=== PATIENT | female | born 1980 | race African-American/Black ===

== ENCOUNTER 2018-10-28 17:06 | Inpatient (IN) ==
[2018-10-28] MEDS: ONDANSETRON 4 MG/2 ML VIAL IV PRN (19:21)
[2018-10-28] MEDS: MORPHINE 4 MG/1 ML VIAL IV PRN (20:03)
[2018-10-28] MEDS: ACETAMINOPHEN 325 MG TABLET PO PRN (22:14)
[2018-10-28] MEDS: PHENAZOPYRIDINE 95 MG TABLET PO SCH (22:14)
[2018-10-28] MEDS: sulfaSALAzine 500 MG TABLET PO SCH (22:14)
[2018-10-29] MEDS: PIPERACILLIN/TAZOBACTAM 3,375 MG in SODIUM CHLORIDE 0.9% 100 ML IV SCH ×4 (00:33→23:46)
[2018-10-29] MEDS: MORPHINE 4 MG/1 ML VIAL IV PRN ×2 (04:26→20:49)
[2018-10-29 05:15] LABS: Basophils % 0.2 % (0.0-0.8); Eosinophils % 0.2 % (0.00-10.9); Hematocrit 27.4 VOL% (35.7-47.0); Immature Granulocytes % 0.5 %; Immature Granulocytes Absolute 0.09 #; Lymphocytes # 3.2 10*3/uL (1.4-4.0); Mean Corpuscular HGB Conc 29.2 GM/DL (32-36); Mean Corpuscular Hemoglobin 26 PG (27-34); Mean Corpuscular Volume 89.3 FL (87-102); Mean Platelet Volume 9.3 FL (9.6-12.0); Monocytes # 1.4 10*3/uL (0.11-0.8); Monocytes % 8.1 % (1.7-12.7); Neutrophils # 12.1 10*3/uL (1.4-7.4); Platelet Count 394 T/CUMM (130-400); Red Blood Count 3.07 MC/CUMM (3.8-5.5); Red Cell Distribution Width 15.2 % (9.3-17.3); White Blood Count 16.8 T/CUMM (4-12)
[2018-10-29 05:51] LABS: Albumin 2.9 G/DL (3.4-5.0); Osmolality,Calculated 271.8 MOS/KG (273-304); Potassium 3.5 MMOL/L (3.5-5.1); Total Protein 7.7 G/DL (6.4-8.3)
[2018-10-29] MEDS: CETIRIZINE 10 MG TABLET PO SCH (09:53)
[2018-10-29] MEDS: sulfaSALAzine 500 MG TABLET PO SCH ×2 (09:53→20:54)
[2018-10-29] MEDS: PANTOPRAZOLE 40 MG TABLET PO SCH (09:53)
[2018-10-29] MEDS: PHENAZOPYRIDINE 95 MG TABLET PO SCH ×3 (09:53→20:53)
[2018-10-29] MEDS: ACETAMINOPHEN 325 MG TABLET PO PRN (13:55)
[2018-10-30 09:35] LABS: Basophils % 0.2 % (0.0-0.8); Eosinophils % 0.3 % (0.00-10.9); Hematocrit 26.9 VOL% (35.7-47.0); Hemoglobin 7.9 GM/DL (12.0-16.0); Immature Granulocytes % 0.6 %; Immature Granulocytes Absolute 0.08 #; Lymphocytes # 2.7 10*3/uL (1.4-4.0); Lymphocytes % 20.8 % (21.3-54.2); Mean Corpuscular HGB Conc 29.4 GM/DL (32-36); Mean Corpuscular Hemoglobin 27 PG (27-34); Mean Corpuscular Volume 91.2 FL (87-102); Mean Platelet Volume 9.3 FL (9.6-12.0); Monocytes # 1.3 10*3/uL (0.11-0.8); Monocytes % 9.6 % (1.7-12.7); Neutrophils % 68.5 % (38.7-73.9); Platelet Count 383 T/CUMM (130-400); Red Blood Count 2.95 MC/CUMM (3.8-5.5); Red Cell Distribution Width 15.4 % (9.3-17.3); White Blood Count 13.2 T/CUMM (4-12)
[2018-10-30] MEDS: PIPERACILLIN/TAZOBACTAM 3,375 MG in SODIUM CHLORIDE 0.9% 100 ML IV SCH ×2 (09:52→16:15)
[2018-10-30] MEDS: sulfaSALAzine 500 MG TABLET PO SCH ×2 (09:53→21:37)
[2018-10-30] MEDS: PANTOPRAZOLE 40 MG TABLET PO SCH (09:53)
[2018-10-30] MEDS: PHENAZOPYRIDINE 95 MG TABLET PO SCH ×3 (09:53→21:37)
[2018-10-30] MEDS: CETIRIZINE 10 MG TABLET PO SCH (09:53)
[2018-10-30 09:57] LABS: Potassium 3.6 MMOL/L (3.5-5.1)
[2018-10-30] MEDS: MORPHINE 4 MG/1 ML VIAL IV PRN (16:15)
[2018-10-31] MEDS: PIPERACILLIN/TAZOBACTAM 3,375 MG in SODIUM CHLORIDE 0.9% 100 ML IV SCH ×3 (01:41→17:03)
[2018-10-31 05:46] LABS: Basophils % 0.3 % (0.0-0.8); Eosinophils % 0.3 % (0.00-10.9); Hematocrit 27.5 VOL% (35.7-47.0); Immature Granulocytes % 0.6 %; Immature Granulocytes Absolute 0.06 #; Lymphocytes # 2.4 10*3/uL (1.4-4.0); Lymphocytes % 23.3 % (21.3-54.2); Mean Corpuscular HGB Conc 29.1 GM/DL (32-36); Mean Corpuscular Hemoglobin 26 PG (27-34); Mean Corpuscular Volume 90.8 FL (87-102); Mean Platelet Volume 10.1 FL (9.6-12.0); Monocytes # 0.9 10*3/uL (0.11-0.8); Monocytes % 8.5 % (1.7-12.7); Platelet Count 295 T/CUMM (130-400); Red Blood Count 3.03 MC/CUMM (3.8-5.5); Red Cell Distribution Width 15.3 % (9.3-17.3); White Blood Count 10.4 T/CUMM (4-12)
[2018-10-31 06:13] LABS: Calcium 8.8 MG/DL (8.5-10.1); Osmolality,Calculated 272.7 MOS/KG (273-304); Potassium 3.8 MMOL/L (3.5-5.1)
[2018-10-31] MEDS: PANTOPRAZOLE 40 MG TABLET PO SCH (10:02)
[2018-10-31] MEDS: PHENAZOPYRIDINE 95 MG TABLET PO SCH ×3 (10:02→21:35)
[2018-10-31] MEDS: sulfaSALAzine 500 MG TABLET PO SCH ×2 (10:02→21:35)
[2018-10-31] MEDS: CETIRIZINE 10 MG TABLET PO SCH (10:02)
[2018-10-31] MEDS: ACETAMINOPHEN 325 MG TABLET PO PRN (17:03)
[2018-11-01] MEDS: PIPERACILLIN/TAZOBACTAM 3,375 MG in SODIUM CHLORIDE 0.9% 100 ML IV SCH ×4 (00:20→23:53)
[2018-11-01] MEDS: ONDANSETRON 4 MG/2 ML VIAL IV PRN ×2 (04:14→20:15)
[2018-11-01 07:03] LABS: Basophils % 0.2 % (0.0-0.8); Eosinophils % 0.1 % (0.00-10.9); Hemoglobin 8.8 GM/DL (12.0-16.0); Immature Granulocytes % 0.5 %; Immature Granulocytes Absolute 0.07 #; Lymphocytes % 7.9 % (21.3-54.2); Mean Corpuscular HGB Conc 29.3 GM/DL (32-36); Mean Corpuscular Hemoglobin 26 PG (27-34); Mean Corpuscular Volume 90.1 FL (87-102); Mean Platelet Volume 9.3 FL (9.6-12.0); Monocytes # 0.6 10*3/uL (0.11-0.8); Monocytes % 4.6 % (1.7-12.7); Neutrophils # 11.2 10*3/uL (1.4-7.4); Neutrophils % 86.7 % (38.7-73.9); Platelet Count 415 T/CUMM (130-400); Red Blood Count 3.33 MC/CUMM (3.8-5.5); Red Cell Distribution Width 15.5 % (9.3-17.3)
[2018-11-01 07:18] LABS: Calcium 9.5 MG/DL (8.5-10.1); Potassium 3.9 MMOL/L (3.5-5.1)
[2018-11-01] MEDS: PANTOPRAZOLE 40 MG TABLET PO SCH (08:35)
[2018-11-01] MEDS: PHENAZOPYRIDINE 95 MG TABLET PO SCH ×3 (08:35→22:00)
[2018-11-01] MEDS: CETIRIZINE 10 MG TABLET PO SCH (08:35)
[2018-11-01] MEDS: ACETAMINOPHEN 325 MG TABLET PO PRN ×2 (08:35→15:48)
[2018-11-01] MEDS: sulfaSALAzine 500 MG TABLET PO SCH ×2 (08:35→22:00)
[2018-11-01] MEDS: MORPHINE 4 MG/1 ML VIAL IV PRN (12:39)
[2018-11-01] MEDS ORDERED: LACTATED RINGERS 1,000 ML IV ONE (16:27)
[2018-11-01] MEDS: metroNIDAZOLE INJ 500 MG in PREMIX 1 EACH IV SCH (19:17)
[2018-11-01 21:48] LABS: Apearance,Urine CLEAR (Clear); Bacteria,Urine Occasional /HPF (Few); Bilirubin,Urine Negative (Negative); Blood, Urine Negative (Negative); Glucose,Urine (UA) Negative (Negative); Hyaline Casts,Urine 1 /LPF (0-3); Ketones,Urine Negative (Negative); Nitrite,Urine Positive (Negative); Protein,Urine Negative; RBC,Urine 1 /HPF (0-4); Squamous Epithelial Cell,Urine Occasional /HPF (0-10); Urine Color Amber (Yellow); Urine Specific Gravity 1.008 (1.001-1.035); WBC,Urine 1 /HPF (0-6)
[2018-11-02] MEDS: metroNIDAZOLE INJ 500 MG in PREMIX 1 EACH IV SCH ×4 (03:31→21:47)
[2018-11-02 06:18] LABS: Basophils % 0.3 % (0.0-0.8); Eosinophils % 0.1 % (0.00-10.9); Hematocrit 24.7 VOL% (35.7-47.0); Hemoglobin 7.3 GM/DL (12.0-16.0); Immature Granulocytes % 0.5 %; Immature Granulocytes Absolute 0.06 #; Lymphocytes # 1.7 10*3/uL (1.4-4.0); Lymphocytes % 14.5 % (21.3-54.2); Mean Corpuscular HGB Conc 29.6 GM/DL (32-36); Mean Corpuscular Hemoglobin 27 PG (27-34); Mean Corpuscular Volume 89.8 FL (87-102); Mean Platelet Volume 9.3 FL (9.6-12.0); Monocytes # 0.9 10*3/uL (0.11-0.8); Monocytes % 7.5 % (1.7-12.7); Neutrophils # 8.9 10*3/uL (1.4-7.4); Neutrophils % 77.1 % (38.7-73.9); Platelet Count 381 T/CUMM (130-400); Red Blood Count 2.75 MC/CUMM (3.8-5.5); Red Cell Distribution Width 15.9 % (9.3-17.3); White Blood Count 11.5 T/CUMM (4-12)
[2018-11-02 06:40] LABS: Albumin 2.6 G/DL (3.4-5.0); Bilirubin,Total 2.1 MG/DL (0.2-1.0); Calcium 8.9 MG/DL (8.5-10.1); Potassium 3.3 MMOL/L (3.5-5.1); Total Protein 7.4 G/DL (6.4-8.3)
[2018-11-02] MEDS: PHENAZOPYRIDINE 95 MG TABLET PO SCH ×3 (10:30→21:46)
[2018-11-02] MEDS: sulfaSALAzine 500 MG TABLET PO SCH ×2 (10:31→21:46)
[2018-11-02] MEDS: PANTOPRAZOLE 40 MG TABLET PO SCH (10:31)
[2018-11-02] MEDS: CETIRIZINE 10 MG TABLET PO SCH (10:31)
[2018-11-02] MEDS: PIPERACILLIN/TAZOBACTAM 3,375 MG in SODIUM CHLORIDE 0.9% 100 ML IV SCH ×3 (10:40→23:55)
[2018-11-02] MEDS: ACETAMINOPHEN 325 MG TABLET PO PRN (17:35)
[2018-11-02] MEDS: POTASSIUM CHLORIDE 20 MEQ TABLET PO PRN ×2 (21:46→23:54)
[2018-11-03] MEDS: POTASSIUM CHLORIDE 20 MEQ TABLET PO PRN (01:54)
[2018-11-03] MEDS: metroNIDAZOLE INJ 500 MG in PREMIX 1 EACH IV SCH ×2 (03:31→09:00)
[2018-11-03 05:57] LABS: Basophils % 0.3 % (0.0-0.8); Eosinophils # 0.1 10*3/uL (0.0-0.87); Eosinophils % 0.8 % (0.00-10.9); Hematocrit 25.3 VOL% (35.7-47.0); Hemoglobin 7.3 GM/DL (12.0-16.0); Immature Granulocytes % 0.7 %; Immature Granulocytes Absolute 0.06 #; Lymphocytes # 1.7 10*3/uL (1.4-4.0); Mean Corpuscular HGB Conc 28.9 GM/DL (32-36); Mean Corpuscular Hemoglobin 26 PG (27-34); Mean Corpuscular Volume 90.7 FL (87-102); Mean Platelet Volume 9.6 FL (9.6-12.0); Monocytes # 0.9 10*3/uL (0.11-0.8); Monocytes % 10.1 % (1.7-12.7); Neutrophils % 69.1 % (38.7-73.9); Platelet Count 375 T/CUMM (130-400); Red Blood Count 2.79 MC/CUMM (3.8-5.5); Red Cell Distribution Width 15.7 % (9.3-17.3); White Blood Count 8.7 T/CUMM (4-12)
[2018-11-03 06:36] LABS: Albumin 2.7 G/DL (3.4-5.0); Bilirubin,Total 1.1 MG/DL (0.2-1.0); Calcium 8.3 MG/DL (8.5-10.1); Osmolality,Calculated 276.4 MOS/KG (273-304); Potassium 3.6 MMOL/L (3.5-5.1); Total Protein 7.1 G/DL (6.4-8.3)
[2018-11-03 08:39] LABS: Anisocytosis 1+; Hypochromasia 2+; Microcytosis 1+; Platelet Estimate Normal; Polychromasia Slight
[2018-11-03] MEDS: PHENAZOPYRIDINE 95 MG TABLET PO SCH (09:01)
[2018-11-03] MEDS: CETIRIZINE 10 MG TABLET PO SCH (09:01)
[2018-11-03] MEDS: PANTOPRAZOLE 40 MG TABLET PO SCH (09:01)
[2018-11-03] MEDS: sulfaSALAzine 500 MG TABLET PO SCH (09:03)
[2018-11-03] MEDS ORDERED: LEVOFLOXACIN 750 MG TABLET PO SCH (11:30)
[2018-11-03 11:54] VITALS: BP 119/70
[2018-11-03] MEDS: PIPERACILLIN/TAZOBACTAM 3,375 MG in SODIUM CHLORIDE 0.9% 100 ML IV SCH (14:00)
[2018-11-03] MEDS ORDERED: metroNIDAZOLE 500 MG TABLET PO SCH (15:00)
[2018-11-28] MEDS ORDERED: BISACODYL 5 MG TABLET PO ONE (12:00)
[2018-11-28] MEDS ORDERED: POLYETHYLENE GLYCOL POWDER 255 GM BOTTLE PO ONE (18:00)
== END 2018-11-03 13:30 | disposition home or self-care (01) | DRG 392 ==
LOC: EDUNIT# → EDBD → N.ED 17:06 → N.3E 18:06 → SUATTDRO 18:06 → N.3E 20:54
PROVIDERS: ADMIT Hospitalist; ATTEND Internal Medicine

== ENCOUNTER 2020-04-25 11:12 | Inpatient (IN) ==
[2020-04-25] MEDS ORDERED: MORPHINE 4 MG/1 ML VIAL ONE ×2 (11:47→11:48)
[2020-04-25] MEDS ORDERED: ONDANSETRON 4 MG/2 ML VIAL ONE (11:47)
[2020-04-25 11:57] LABS: Basophils % 0.3 % (0.0-0.8); Eosinophils # 0.2 10*3/uL (0.0-0.87); Eosinophils % 1.5 % (0.00-10.9); Hematocrit 32.9 VOL% (35.7-47.0); Hemoglobin 9.8 GM/DL (12.0-16.0); Immature Granulocytes % 0.4 %; Immature Granulocytes Absolute 0.06 #; Lymphocytes # 2.4 10*3/uL (1.4-4.0); Lymphocytes % 17.5 % (21.3-54.2); Mean Corpuscular HGB Conc 29.8 GM/DL (32-36); Mean Platelet Volume 9.3 FL (9.6-12.0); Neutrophils % 71.3 % (38.7-73.9); Platelet Count 470 T/CUMM (130-400); Red Blood Count 4.01 MC/CUMM (3.8-5.5); Red Cell Distribution Width 15.5 % (9.3-17.3); White Blood Count 13.8 T/CUMM (4-12)
[2020-04-25 12:01] LABS: Apearance,Urine CLEAR (Clear); Bacteria,Urine Occasional /HPF (Few); Bilirubin,Urine Negative (Negative); Blood, Urine Small mg/dL (Negative); Glucose,Urine (UA) Negative (Negative); Ketones,Urine Negative (Negative); Mucus,Urine Occasional /LPF (Occasional); Nitrite,Urine Negative (Negative); Protein,Urine 100 MG/DL; RBC,Urine 84 /HPF (0-4); Squamous Epithelial Cell,Urine Occasional /HPF (0-10); Urine Color Amber (Yellow); Urine Specific Gravity 1.021 (1.001-1.035); WBC,Urine 4 /HPF (0-6)
[2020-04-25] MEDS ORDERED: ONDANSETRON 4 MG/2 ML VIAL IV STA (12:13)
[2020-04-25] MEDS ORDERED: MORPHINE 4 MG/1 ML VIAL IV STA ×3 (12:13→13:50)
[2020-04-25] MEDS ORDERED: PIPERACILLIN/TAZOBACTAM 3,375 MG in SODIUM CHLORIDE 0.9% 100 ML IV STA (12:35)
[2020-04-25] MEDS ORDERED: MAGNESIUM SULF RIDER 2 GM in PREMIX 1 EACH IV PRN (13:38)
[2020-04-25] MEDS ORDERED: MAGNESIUM SULF RIDER 4 GM in PREMIX 1 EACH IV PRN (13:38)
[2020-04-25] MEDS ORDERED: HYDROmorphone 2 MG/1 ML VIAL IV PRN (13:38)
[2020-04-25 13:50] LABS: Bilirubin,Total 1.5 MG/DL (0.2-1.0); Calcium 8.6 MG/DL (8.5-10.1); Total Protein 7.5 G/DL (6.4-8.3)
[2020-04-25] MEDS ORDERED: CIPROFLOXACIN INJ 400 MG in PREMIX 1 EACH IV SCH (14:00)
[2020-04-25] MEDS ORDERED: metroNIDAZOLE INJ 500 MG in PREMIX 1 EACH IV SCH (14:00)
[2020-04-25] MEDS ORDERED: LEVOFLOXACIN INJ 500 MG in PREMIX 1 EACH IV SCH ×2 (14:00→14:30)
[2020-04-25] MEDS ORDERED: LEVOFLOXACIN INJ 500 MG in PREMIX 1 EACH IV STA (14:19)
[2020-04-25] MEDS ORDERED: hydrALAZINE 20 MG/1 ML VIAL IV PRN (14:29)
[2020-04-25] MEDS: SODIUM CHLORIDE 0.9% 1,000 ML IV SCH (16:08)
[2020-04-25] MEDS ORDERED: PHENAZOPYRIDINE 95 MG TABLET PO SCH (17:00)
[2020-04-25] MEDS: HYDROmorphone 2 MG/1 ML VIAL IV PRN ×2 (19:31→23:10)
[2020-04-25] MEDS: PIPERACILLIN/TAZOBACTAM 3,375 MG in SODIUM CHLORIDE 0.9% 100 ML IV SCH (21:41)
[2020-04-25] MEDS: DOCUSATE SODIUM 100 MG CAPSULE PO SCH (21:41)
[2020-04-25] MEDS: POLYETHYLENE GLYCOL POWDER 17 GM PACK PO SCH (21:41)
[2020-04-25] MEDS: RIVAROXABAN 10 MG TABLET PO SCH (21:41)
[2020-04-26] MEDS: SODIUM CHLORIDE 0.9% 1,000 ML IV SCH ×2 (01:28→09:37)
[2020-04-26] MEDS: HYDROmorphone 2 MG/1 ML VIAL IV PRN ×3 (01:34→21:00)
[2020-04-26] MEDS: PIPERACILLIN/TAZOBACTAM 3,375 MG in SODIUM CHLORIDE 0.9% 100 ML IV SCH ×3 (05:02→21:00)
[2020-04-26 06:45] LABS: Basophils % 0.2 % (0.0-0.8); Eosinophils # 0.1 10*3/uL (0.0-0.87); Hematocrit 30.5 VOL% (35.7-47.0); Hemoglobin 8.9 GM/DL (12.0-16.0); Immature Granulocytes % 0.4 %; Immature Granulocytes Absolute 0.06 #; Lymphocytes # 2.7 10*3/uL (1.4-4.0); Lymphocytes % 18.9 % (21.3-54.2); Mean Corpuscular HGB Conc 29.2 GM/DL (32-36); Mean Corpuscular Volume 83.8 FL (87-102); Mean Platelet Volume 9.4 FL (9.6-12.0); Monocytes % 9.9 % (1.7-12.7); NRBC # 0.02 10*3/uL; Neutrophils % 69.6 % (38.7-73.9); Platelet Count 469 T/CUMM (130-400); Red Blood Count 3.64 MC/CUMM (3.8-5.5); Red Cell Distribution Width 15.8 % (9.3-17.3); White Blood Count 14.1 T/CUMM (4-12)
[2020-04-26 06:54] LABS: Albumin 2.8 G/DL (3.4-5.0); Bilirubin,Total 1.9 MG/DL (0.2-1.0); Calcium 8.9 MG/DL (8.5-10.1); Osmolality,Calculated 270.8 MOS/KG (273-304); Total Protein 7.9 G/DL (6.4-8.3)
[2020-04-26] MEDS ORDERED: hydroCHLOROthiazide 25 MG TABLET PO SCH (09:00)
[2020-04-26] MEDS ORDERED: NON-FORMULARY MEDICATION (Mesalamine [Lialda] 2.4 GM) PO SCH (09:00)
[2020-04-26] MEDS: NORTRIPTYLINE 25 MG CAPSULE PO SCH (09:38)
[2020-04-26] MEDS: DOCUSATE SODIUM 100 MG CAPSULE PO SCH ×2 (09:38→20:59)
[2020-04-26] MEDS: PANTOPRAZOLE 40 MG VIAL IV SCH (09:38)
[2020-04-26] MEDS: POLYETHYLENE GLYCOL POWDER 17 GM PACK PO SCH ×3 (09:39→20:59)
[2020-04-26] MEDS: RIVAROXABAN 10 MG TABLET PO SCH (20:59)
[2020-04-27] MEDS: SODIUM CHLORIDE 0.9% 1,000 ML IV SCH ×5 (02:05→23:02)
[2020-04-27] MEDS: PIPERACILLIN/TAZOBACTAM 3,375 MG in SODIUM CHLORIDE 0.9% 100 ML IV SCH ×3 (04:30→22:12)
[2020-04-27] MEDS: HYDROmorphone 2 MG/1 ML VIAL IV PRN ×4 (05:01→22:25)
[2020-04-27 06:17] LABS: Basophils % 0.3 % (0.0-0.8); Eosinophils # 0.2 10*3/uL (0.0-0.87); Eosinophils % 2.2 % (0.00-10.9); Hematocrit 27.9 VOL% (35.7-47.0); Immature Granulocytes % 0.5 %; Immature Granulocytes Absolute 0.05 #; Lymphocytes # 2.6 10*3/uL (1.4-4.0); Lymphocytes % 27.5 % (21.3-54.2); Mean Corpuscular HGB Conc 28.7 GM/DL (32-36); Mean Corpuscular Volume 86.1 FL (87-102); Mean Platelet Volume 9.2 FL (9.6-12.0); Monocytes % 8.2 % (1.7-12.7); Neutrophils % 61.3 % (38.7-73.9); Platelet Count 407 T/CUMM (130-400); Red Blood Count 3.24 MC/CUMM (3.8-5.5); White Blood Count 9.4 T/CUMM (4-12)
[2020-04-27 06:42] LABS: Albumin 2.5 G/DL (3.4-5.0); Bilirubin,Total 0.8 MG/DL (0.2-1.0); Calcium 8.5 MG/DL (8.5-10.1); Osmolality,Calculated 274.5 MOS/KG (273-304); Platelet Estimate Normal; Total Protein 7.1 G/DL (6.4-8.3)
[2020-04-27 06:43] LABS: Anisocytosis 2+
[2020-04-27] MEDS: POLYETHYLENE GLYCOL POWDER 17 GM PACK PO SCH ×3 (08:29→22:10)
[2020-04-27] MEDS: PANTOPRAZOLE 40 MG VIAL IV SCH (08:29)
[2020-04-27] MEDS: DOCUSATE SODIUM 100 MG CAPSULE PO SCH ×2 (08:29→22:11)
[2020-04-27] MEDS: NORTRIPTYLINE 25 MG CAPSULE PO SCH (08:29)
[2020-04-27] MEDS: RIVAROXABAN 10 MG TABLET PO SCH (22:11)
[2020-04-28] MEDS: PIPERACILLIN/TAZOBACTAM 3,375 MG in SODIUM CHLORIDE 0.9% 100 ML IV SCH (05:11)
[2020-04-28] MEDS: HYDROmorphone 2 MG/1 ML VIAL IV PRN (05:29)
[2020-04-28 05:39] LABS: Albumin 2.5 G/DL (3.4-5.0); Bilirubin,Total 0.6 MG/DL (0.2-1.0); Calcium 8.7 MG/DL (8.5-10.1); Osmolality,Calculated 270.7 MOS/KG (273-304); Total Protein 7.4 G/DL (6.4-8.3)
[2020-04-28 06:02] LABS: Basophils % 0.5 % (0.0-0.8); Eosinophils # 0.2 10*3/uL (0.0-0.87); Eosinophils % 2.4 % (0.00-10.9); Hematocrit 28.2 VOL% (35.7-47.0); Hemoglobin 8.3 GM/DL (12.0-16.0); Immature Granulocytes % 0.4 %; Immature Granulocytes Absolute 0.03 #; Lymphocytes % 35.6 % (21.3-54.2); Mean Corpuscular HGB Conc 29.4 GM/DL (32-36); Mean Corpuscular Volume 83.9 FL (87-102); Mean Platelet Volume 9.4 FL (9.6-12.0); Monocytes % 10.6 % (1.7-12.7); Neutrophils % 50.5 % (38.7-73.9); Platelet Count 411 T/CUMM (130-400); Red Blood Count 3.36 MC/CUMM (3.8-5.5); White Blood Count 8.3 T/CUMM (4-12)
[2020-04-28 06:08] LABS: Anisocytosis 1+; Hypochromasia 2+
[2020-04-28 06:09] LABS: Platelet Estimate Increased; Polychromasia Slight
[2020-04-28] MEDS ORDERED: CIPROFLOXACIN 500 MG TABLET PO SCH (09:00)
[2020-04-28] MEDS ORDERED: metroNIDAZOLE 500 MG TABLET PO SCH (09:00)
[2020-04-28] MEDS: PANTOPRAZOLE 40 MG VIAL IV SCH (09:27)
[2020-04-28] MEDS: NORTRIPTYLINE 25 MG CAPSULE PO SCH (09:27)
[2020-04-28] MEDS: DOCUSATE SODIUM 100 MG CAPSULE PO SCH (09:28)
[2020-04-28] MEDS: POLYETHYLENE GLYCOL POWDER 17 GM PACK PO SCH (09:28)
[2020-04-28 11:17] VITALS: BP 113/74
== END 2020-04-28 13:10 | disposition home or self-care (01) | DRG 392 ==
LOC: N.ED 11:12 → N.EDINP 13:41 → SUATTDRO 13:41 → N.EDINP 14:55 → N.3E 16:01
PROVIDERS: ADMIT Hospitalist; ATTEND Emergency Medicine

== ENCOUNTER 2020-05-06 10:18 | Inpatient (IN) ==
[2020-05-06] MEDS ORDERED: PROMETHAZINE 25 MG/1 ML VIAL IM PRN (16:44)
[2020-05-06] MEDS ORDERED: ACETAMINOPHEN 325 MG TABLET PO PRN (16:44)
[2020-05-06] MEDS: LACTATED RINGERS 1,000 ML IV SCH (19:33)
[2020-05-06] MEDS: metroNIDAZOLE INJ 500 MG in PREMIX 1 EACH IV SCH (19:33)
[2020-05-06 20:45] LABS: Basophils % 0.4 % (0.0-0.8); Eosinophils # 0.1 10*3/uL (0.0-0.87); Hematocrit 30.2 VOL% (35.7-47.0); Hemoglobin 8.8 GM/DL (12.0-16.0); Immature Granulocytes % 0.2 %; Immature Granulocytes Absolute 0.02 #; Lymphocytes # 2.6 10*3/uL (1.4-4.0); Lymphocytes % 31.1 % (21.3-54.2); Mean Corpuscular HGB Conc 29.1 GM/DL (32-36); Mean Corpuscular Volume 86.8 FL (87-102); Mean Platelet Volume 9.6 FL (9.6-12.0); Monocytes % 11.2 % (1.7-12.7); Neutrophils % 56.1 % (38.7-73.9); Platelet Count 425 T/CUMM (130-400); Red Blood Count 3.48 MC/CUMM (3.8-5.5); Red Cell Distribution Width 17.8 % (9.3-17.3); White Blood Count 8.4 T/CUMM (4-12)
[2020-05-06 20:56] LABS: Calcium 8.6 MG/DL (8.5-10.1); Osmolality,Calculated 273.7 MOS/KG (273-304)
[2020-05-06] MEDS: PIPERACILLIN/TAZOBACTAM 3,375 MG in SODIUM CHLORIDE 0.9% 100 ML IV SCH (21:12)
[2020-05-06] MEDS: HYDROmorphone 2 MG/1 ML VIAL IV PRN (21:24)
[2020-05-06] MEDS: oxyCODONE/ACETAMINOPHEN 5-325 MG TABLET PO PRN (23:27)
[2020-05-07] MEDS: metroNIDAZOLE INJ 500 MG in PREMIX 1 EACH IV SCH ×3 (01:38→17:30)
[2020-05-07] MEDS: oxyCODONE/ACETAMINOPHEN 5-325 MG TABLET PO PRN (04:22)
[2020-05-07] MEDS: PIPERACILLIN/TAZOBACTAM 3,375 MG in SODIUM CHLORIDE 0.9% 100 ML IV SCH ×2 (05:13→18:43)
[2020-05-07 06:28] LABS: Basophils % 0.4 % (0.0-0.8); Eosinophils # 0.1 10*3/uL (0.0-0.87); Eosinophils % 1.6 % (0.00-10.9); Hematocrit 30.4 VOL% (35.7-47.0); Hemoglobin 8.8 GM/DL (12.0-16.0); Immature Granulocytes % 0.1 %; Immature Granulocytes Absolute 0.01 #; Lymphocytes # 2.1 10*3/uL (1.4-4.0); Lymphocytes % 30.3 % (21.3-54.2); Mean Corpuscular HGB Conc 28.9 GM/DL (32-36); Mean Corpuscular Volume 87.9 FL (87-102); Mean Platelet Volume 9.3 FL (9.6-12.0); Monocytes % 9.4 % (1.7-12.7); Neutrophils % 58.2 % (38.7-73.9); Platelet Count 395 T/CUMM (130-400); Red Blood Count 3.46 MC/CUMM (3.8-5.5); Red Cell Distribution Width 17.3 % (9.3-17.3); White Blood Count 6.9 T/CUMM (4-12)
[2020-05-07 06:55] LABS: Calcium 8.6 MG/DL (8.5-10.1); Osmolality,Calculated 274.5 MOS/KG (273-304)
[2020-05-07] MEDS: PANTOPRAZOLE 40 MG TABLET PO SCH (09:05)
[2020-05-07] MEDS ORDERED: SCOPOLAMINE 1.5 MG PATCH TRANSDERM ONE ×2 (09:41→11:21)
[2020-05-07] MEDS ORDERED: MIDAZOLAM 2 MG/2 ML VIAL ONE ×2 (10:32→15:53)
[2020-05-07] MEDS ORDERED: DEXAMETHASONE 4 MG/1 ML VIAL ONE ×2 (10:32→15:54)
[2020-05-07] MEDS ORDERED: ROPIVACAINE 0.5% 30 ML VIAL ONE (10:32)
[2020-05-07] MEDS ORDERED: LIDOCAINE 1% 5 ML VIAL ONE (10:32)
[2020-05-07] MEDS ORDERED: ONDANSETRON 4 MG/2 ML VIAL ONE ×2 (10:33→15:54)
[2020-05-07] MEDS ORDERED: ONDANSETRON 4 MG/2 ML VIAL IV ONE (11:04)
[2020-05-07] MEDS ORDERED: MIDAZOLAM 2 MG/2 ML VIAL IV ONE (11:04)
[2020-05-07] MEDS ORDERED: SODIUM CHLORIDE 0.9% 1,000 ML IV PRN ×2 (12:50→12:54)
[2020-05-07 13:39] LABS: Hemoglobin 8.4 GM/DL (12.0-16.0)
[2020-05-07] MEDS: LACTATED RINGERS 1,000 ML IV SCH (14:00)
[2020-05-07] MEDS ORDERED: TISSUE ADHESIVE 1 EACH APPLICATOR TOP ONE (14:53)
[2020-05-07] MEDS ORDERED: propofoL 200 MG/20 ML VIAL IV ONE (15:53)
[2020-05-07] MEDS ORDERED: LIDOCAINE 2% 5 ML VIAL ONE (15:53)
[2020-05-07] MEDS ORDERED: fentaNYL 100 MCG/2 ML VIAL ONE (15:53)
[2020-05-07] MEDS ORDERED: GLYCOPYRROLATE 0.4 MG/2 ML VIAL ONE (15:54)
[2020-05-07] MEDS ORDERED: LACTATED RINGERS 1,000 ML IV ONE (15:54)
[2020-05-07] MEDS ORDERED: ROCURONIUM 100 MG/10 ML VIAL IV ONE (15:54)
[2020-05-07] MEDS ORDERED: ACETAMINOPHEN 1,000 MG/100 ML VIAL IV ONE (15:54)
[2020-05-07] MEDS ORDERED: SODIUM CHLORIDE 0.9% 1,000 ML IV ONE (15:54)
[2020-05-07] MEDS ORDERED: METOPROLOL TARTRATE 5 MG/5 ML VIAL IV ONE (15:54)
[2020-05-07] MEDS ORDERED: NEOSTIGMINE 10 MG/10 ML VIAL ONE (15:54)
[2020-05-07] MEDS ORDERED: PHENYLEPHRINE 1 MG/10 ML SYRINGE IV ONE (15:54)
[2020-05-07] MEDS ORDERED: SEVOFLURANE 1 UNIT/15 MINUTE INH ONE (16:05)
[2020-05-07] MEDS ORDERED: NORTRIPTYLINE 25 MG CAPSULE PO PRN (17:06)
[2020-05-07 17:26] LABS: Basophils % 0.1 % (0.0-0.8); Hematocrit 32.1 VOL% (35.7-47.0); Hemoglobin 9.6 GM/DL (12.0-16.0); Immature Granulocytes % 0.4 %; Immature Granulocytes Absolute 0.05 #; Lymphocytes # 0.9 10*3/uL (1.4-4.0); Lymphocytes % 6.8 % (21.3-54.2); Mean Corpuscular HGB Conc 29.9 GM/DL (32-36); Mean Corpuscular Volume 87.2 FL (87-102); Mean Platelet Volume 9.3 FL (9.6-12.0); Monocytes % 1.6 % (1.7-12.7); Neutrophils % 91.1 % (38.7-73.9); Platelet Count 430 T/CUMM (130-400); Red Blood Count 3.68 MC/CUMM (3.8-5.5); Red Cell Distribution Width 17.5 % (9.3-17.3); White Blood Count 13.2 T/CUMM (4-12)
[2020-05-07 17:48] LABS: Calcium 8.5 MG/DL (8.5-10.1); Osmolality,Calculated 277.5 MOS/KG (273-304)
[2020-05-07 18:05] LABS: Anisocytosis 2+; Lymphocytes 4 % (20-55); Macrocytosis 1+; Microcytosis 2+; Platelet Estimate Increased; Polychromasia Slight; Segmented Neutrophils 96 % (50-85); Total Cells Counted 100
[2020-05-07] MEDS: HYDROmorphone 2 MG/1 ML VIAL IV PRN ×2 (18:40→22:58)
[2020-05-08] MEDS: LACTATED RINGERS 1,000 ML IV SCH ×3 (01:29→14:00)
[2020-05-08] MEDS: metroNIDAZOLE INJ 500 MG in PREMIX 1 EACH IV SCH ×3 (01:32→18:03)
[2020-05-08] MEDS: HYDROmorphone 2 MG/1 ML VIAL IV PRN ×4 (03:17→19:43)
[2020-05-08] MEDS: PIPERACILLIN/TAZOBACTAM 3,375 MG in SODIUM CHLORIDE 0.9% 100 ML IV SCH ×3 (03:23→19:19)
[2020-05-08 06:59] LABS: Basophils % 0.2 % (0.0-0.8); Hematocrit 29.7 VOL% (35.7-47.0); Hemoglobin 8.8 GM/DL (12.0-16.0); Immature Granulocytes % 0.5 %; Immature Granulocytes Absolute 0.06 #; Lymphocytes # 2.2 10*3/uL (1.4-4.0); Mean Corpuscular HGB Conc 29.6 GM/DL (32-36); Mean Corpuscular Volume 88.4 FL (87-102); Mean Platelet Volume 9.9 FL (9.6-12.0); Monocytes % 6.6 % (1.7-12.7); Neutrophils % 75.7 % (38.7-73.9); Platelet Count 439 T/CUMM (130-400); Red Blood Count 3.36 MC/CUMM (3.8-5.5); Red Cell Distribution Width 17.3 % (9.3-17.3); White Blood Count 12.8 T/CUMM (4-12)
[2020-05-08 07:21] LABS: Calcium 8.4 MG/DL (8.5-10.1); Osmolality,Calculated 274.5 MOS/KG (273-304)
[2020-05-08] MEDS: PANTOPRAZOLE 40 MG TABLET PO SCH (08:19)
[2020-05-08] MEDS: CETIRIZINE 10 MG TABLET PO SCH (08:19)
[2020-05-08] MEDS: MESALAMINE 1.5 GM PO SCH (09:20)
[2020-05-08] MEDS: ENOXAPARIN 40 MG/0.4 ML SYRINGE SUBCUT SCH (09:20)
[2020-05-08] MEDS: oxyCODONE/ACETAMINOPHEN 5-325 MG TABLET PO PRN ×2 (13:06→23:12)
[2020-05-08] MEDS: KETOROLAC 15 MG/1 ML VIAL IV PRN (23:13)
[2020-05-09] MEDS: metroNIDAZOLE INJ 500 MG in PREMIX 1 EACH IV SCH ×3 (00:15→17:10)
[2020-05-09] MEDS: HYDROmorphone 2 MG/1 ML VIAL IV PRN ×5 (02:00→20:43)
[2020-05-09] MEDS: PIPERACILLIN/TAZOBACTAM 3,375 MG in SODIUM CHLORIDE 0.9% 100 ML IV SCH ×3 (02:08→18:21)
[2020-05-09] MEDS: ONDANSETRON 4 MG/2 ML VIAL IV PRN ×2 (04:15→20:42)
[2020-05-09] MEDS: KETOROLAC 15 MG/1 ML VIAL IV PRN (05:16)
[2020-05-09 05:50] LABS: Basophils % 0.2 % (0.0-0.8); Eosinophils # 0.2 10*3/uL (0.0-0.87); Eosinophils % 1.1 % (0.00-10.9); Hematocrit 32.3 VOL% (35.7-47.0); Hemoglobin 9.6 GM/DL (12.0-16.0); Immature Granulocytes % 0.3 %; Immature Granulocytes Absolute 0.05 #; Lymphocytes # 2.1 10*3/uL (1.4-4.0); Lymphocytes % 13.9 % (21.3-54.2); Mean Corpuscular HGB Conc 29.7 GM/DL (32-36); Mean Corpuscular Volume 87.5 FL (87-102); Mean Platelet Volume 9.7 FL (9.6-12.0); Monocytes % 6.2 % (1.7-12.7); Neutrophils % 78.3 % (38.7-73.9); Platelet Count 466 T/CUMM (130-400); Red Blood Count 3.69 MC/CUMM (3.8-5.5); Red Cell Distribution Width 17.2 % (9.3-17.3); White Blood Count 15.2 T/CUMM (4-12)
[2020-05-09] MEDS: LACTATED RINGERS 1,000 ML IV SCH ×3 (06:12→14:00)
[2020-05-09] MEDS: CETIRIZINE 10 MG TABLET PO SCH (09:00)
[2020-05-09] MEDS: ENOXAPARIN 40 MG/0.4 ML SYRINGE SUBCUT SCH (09:00)
[2020-05-09] MEDS: PANTOPRAZOLE 40 MG TABLET PO SCH (09:00)
[2020-05-09] MEDS: MESALAMINE 1.5 GM PO SCH (09:01)
[2020-05-09] MEDS: KETOROLAC 15 MG/1 ML VIAL IV SCH ×3 (12:15→23:50)
[2020-05-10] MEDS: LACTATED RINGERS 1,000 ML IV SCH ×2 (00:02→06:21)
[2020-05-10] MEDS: metroNIDAZOLE INJ 500 MG in PREMIX 1 EACH IV SCH ×2 (01:27→08:41)
[2020-05-10] MEDS: HYDROmorphone 2 MG/1 ML VIAL IV PRN ×4 (02:47→20:45)
[2020-05-10] MEDS: PIPERACILLIN/TAZOBACTAM 3,375 MG in SODIUM CHLORIDE 0.9% 100 ML IV SCH (02:51)
[2020-05-10 05:23] LABS: Basophils % 0.2 % (0.0-0.8); Eosinophils # 0.3 10*3/uL (0.0-0.87); Eosinophils % 2.3 % (0.00-10.9); Hematocrit 28.5 VOL% (35.7-47.0); Hemoglobin 8.3 GM/DL (12.0-16.0); Immature Granulocytes % 0.4 %; Immature Granulocytes Absolute 0.05 #; Lymphocytes # 2.1 10*3/uL (1.4-4.0); Lymphocytes % 16.7 % (21.3-54.2); Mean Corpuscular HGB Conc 29.1 GM/DL (32-36); Mean Corpuscular Volume 88.5 FL (87-102); Mean Platelet Volume 9.4 FL (9.6-12.0); Monocytes % 6.9 % (1.7-12.7); Neutrophils % 73.5 % (38.7-73.9); Platelet Count 397 T/CUMM (130-400); Red Blood Count 3.22 MC/CUMM (3.8-5.5); Red Cell Distribution Width 17.2 % (9.3-17.3); White Blood Count 12.8 T/CUMM (4-12)
[2020-05-10] MEDS: KETOROLAC 15 MG/1 ML VIAL IV SCH ×4 (05:29→23:30)
[2020-05-10 05:49] LABS: Calcium 8.5 MG/DL (8.5-10.1); Osmolality,Calculated 281.3 MOS/KG (273-304)
[2020-05-10] MEDS: ENOXAPARIN 40 MG/0.4 ML SYRINGE SUBCUT SCH (08:41)
[2020-05-10] MEDS: CETIRIZINE 10 MG TABLET PO SCH (08:41)
[2020-05-10] MEDS: PANTOPRAZOLE 40 MG TABLET PO SCH (08:41)
[2020-05-10] MEDS: MESALAMINE 1.5 GM PO SCH (08:42)
[2020-05-10] MEDS ORDERED: CIPROFLOXACIN 500 MG TABLET PO ONE (10:00)
[2020-05-10] MEDS: metroNIDAZOLE 500 MG TABLET PO SCH ×2 (15:46→20:45)
[2020-05-10] MEDS: CIPROFLOXACIN 500 MG TABLET PO SCH (20:45)
[2020-05-11] MEDS: HYDROmorphone 2 MG/1 ML VIAL IV PRN ×2 (03:09→14:25)
[2020-05-11] MEDS: KETOROLAC 15 MG/1 ML VIAL IV SCH ×4 (05:09→22:52)
[2020-05-11 06:59] LABS: Basophils % 0.2 % (0.0-0.8); Eosinophils # 0.5 10*3/uL (0.0-0.87); Eosinophils % 4.8 % (0.00-10.9); Hematocrit 24.3 VOL% (35.7-47.0); Immature Granulocytes % 0.3 %; Immature Granulocytes Absolute 0.03 #; Lymphocytes # 2.2 10*3/uL (1.4-4.0); Lymphocytes % 21.1 % (21.3-54.2); Mean Corpuscular HGB Conc 28.8 GM/DL (32-36); Mean Corpuscular Volume 87.1 FL (87-102); Mean Platelet Volume 9.9 FL (9.6-12.0); Monocytes % 8.3 % (1.7-12.7); Neutrophils % 65.3 % (38.7-73.9); Platelet Count 382 T/CUMM (130-400); Red Blood Count 2.79 MC/CUMM (3.8-5.5); White Blood Count 10.3 T/CUMM (4-12)
[2020-05-11 07:22] LABS: Hypochromasia 2+; Microcytosis 1+; Platelet Estimate Adequate
[2020-05-11] MEDS: CETIRIZINE 10 MG TABLET PO SCH (08:35)
[2020-05-11] MEDS: ENOXAPARIN 40 MG/0.4 ML SYRINGE SUBCUT SCH (08:35)
[2020-05-11] MEDS: metroNIDAZOLE 500 MG TABLET PO SCH ×3 (08:35→21:44)
[2020-05-11] MEDS: PANTOPRAZOLE 40 MG TABLET PO SCH (08:35)
[2020-05-11] MEDS: CIPROFLOXACIN 500 MG TABLET PO SCH ×2 (08:35→21:44)
[2020-05-11] MEDS: MESALAMINE 1.5 GM PO SCH (08:36)
[2020-05-12] MEDS: KETOROLAC 15 MG/1 ML VIAL IV SCH (04:38)
[2020-05-12 06:08] LABS: Basophils % 0.3 % (0.0-0.8); Eosinophils # 0.4 10*3/uL (0.0-0.87); Eosinophils % 4.5 % (0.00-10.9); Hematocrit 24.4 VOL% (35.7-47.0); Immature Granulocytes % 0.5 %; Immature Granulocytes Absolute 0.04 #; Lymphocytes # 1.6 10*3/uL (1.4-4.0); Lymphocytes % 18.6 % (21.3-54.2); Mean Corpuscular HGB Conc 28.7 GM/DL (32-36); Mean Corpuscular Volume 87.8 FL (87-102); Mean Platelet Volume 9.1 FL (9.6-12.0); Monocytes % 8.7 % (1.7-12.7); Neutrophils % 67.4 % (38.7-73.9); Platelet Count 363 T/CUMM (130-400); Red Blood Count 2.78 MC/CUMM (3.8-5.5); White Blood Count 8.6 T/CUMM (4-12)
[2020-05-12 06:30] LABS: Hypochromasia 1+; Microcytosis Slight; Platelet Estimate Adequate
[2020-05-12] MEDS: metroNIDAZOLE 500 MG TABLET PO SCH (09:07)
[2020-05-12] MEDS: CIPROFLOXACIN 500 MG TABLET PO SCH (09:07)
[2020-05-12] MEDS: PANTOPRAZOLE 40 MG TABLET PO SCH (09:08)
[2020-05-12] MEDS: CETIRIZINE 10 MG TABLET PO SCH (09:08)
[2020-05-12] MEDS: ENOXAPARIN 40 MG/0.4 ML SYRINGE SUBCUT SCH (09:11)
[2020-05-12] MEDS: MESALAMINE 1.5 GM PO SCH (11:37)
[2020-05-12 11:41] VITALS: BP 131/82
== END 2020-05-12 13:05 | disposition home health service (06) | DRG 329 ==
LOC: N.2E 16:02 → N.3E 05-07 16:02
PROVIDERS: ADMIT Surgery; ATTEND Surgery

== ENCOUNTER 2020-12-28 05:58 | Inpatient (IN) ==
[2020-12-20 12:42] LABS: Basophils # 0.1 10*3/uL (0.0-0.2); Basophils % 0.7 % (0.0-0.8); Eosinophils # 0.1 10*3/uL (0.0-0.87); Eosinophils % 0.6 % (0.00-10.9); Hematocrit 35.8 VOL% (35.7-47.0); Hemoglobin 10.6 GM/DL (12.0-16.0); Immature Granulocytes % 0.3 %; Immature Granulocytes Absolute 0.03 #; Lymphocytes # 3.5 10*3/uL (1.4-4.0); Lymphocytes % 40.3 % (21.3-54.2); Mean Corpuscular HGB Conc 29.6 GM/DL (32-36); Mean Corpuscular Volume 76.5 FL (87-102); Mean Platelet Volume 10.3 FL (9.6-12.0); Monocytes % 7.1 % (1.7-12.7); Platelet Count 355 T/CUMM (130-400); Red Blood Count 4.68 MC/CUMM (3.8-5.5); Red Cell Distribution Width 16.7 % (9.3-17.3); White Blood Count 8.8 T/CUMM (4-12)
[2020-12-20 13:01] LABS: Calcium 9.2 MG/DL (8.5-10.1); Osmolality,Calculated 271.8 MOS/KG (273-304); Potassium 4.3 MMOL/L (3.5-5.1)
[2020-12-28] MEDS ORDERED: DEXAMETHASONE 4 MG/1 ML VIAL ONE ×2 (06:27→12:56)
[2020-12-28] MEDS ORDERED: MIDAZOLAM 2 MG/2 ML VIAL ONE (06:27)
[2020-12-28] MEDS ORDERED: fentaNYL 100 MCG/2 ML VIAL ONE ×5 (06:27→14:01)
[2020-12-28] MEDS ORDERED: ROPIVACAINE 0.5% 30 ML VIAL ONE (06:28)
[2020-12-28] MEDS ORDERED: ALVIMOPAN 12 MG CAPSULE PO ONE (06:30)
[2020-12-28] MEDS ORDERED: ERTAPENEM 1,000 MG in SODIUM CHLORIDE 0.9% 100 ML IV ONE (06:30)
[2020-12-28] MEDS ORDERED: SCOPOLAMINE 1.5 MG PATCH TRANSDERM ONE (06:41)
[2020-12-28] MEDS ORDERED: SCOPOLAMINE 1.5 MG PATCH TRANSDERM STA (06:42)
[2020-12-28] MEDS ORDERED: INDOCYANINE GREEN 25 MG VIAL IV ONE (06:42)
[2020-12-28] MEDS ORDERED: LACTATED RINGERS 1,000 ML IV SCH (06:45)
[2020-12-28] MEDS ORDERED: SEVOFLURANE 1 UNIT/15 MINUTE INH ONE ×19 (08:14→13:01)
[2020-12-28] MEDS ORDERED: SUCCINYLCHOLINE 200 MG/10 ML VIAL ONE (08:14)
[2020-12-28] MEDS ORDERED: propofoL 200 MG/20 ML VIAL IV ONE (08:14)
[2020-12-28] MEDS ORDERED: LIDOCAINE 2% 5 ML VIAL ONE (08:14)
[2020-12-28] MEDS ORDERED: ROCURONIUM 50 MG/5 ML VIAL IV ONE ×2 (08:14→10:24)
[2020-12-28] MEDS ORDERED: ACETAMINOPHEN 1,000 MG/100 ML VIAL IV ONE (09:34)
[2020-12-28] MEDS ORDERED: ONDANSETRON 4 MG/2 ML VIAL ONE ×2 (12:56→14:34)
[2020-12-28] MEDS ORDERED: SUGAMMADEX 200 MG/2 ML VIAL IV ONE (13:08)
[2020-12-28] MEDS ORDERED: LACTATED RINGERS 2,000 ML IV ONE (13:42)
[2020-12-28] MEDS ORDERED: TISSUE ADHESIVE 1 EACH APPLICATOR TOP ONE (14:03)
[2020-12-28] MEDS ORDERED: HYDROmorphone 2 MG/1 ML VIAL ONE (14:34)
[2020-12-28] MEDS: HYDROmorphone 2 MG/1 ML VIAL IV PRN ×4 (14:35→14:50)
[2020-12-28] MEDS ORDERED: ONDANSETRON 4 MG/2 ML VIAL IV PRN (14:36)
[2020-12-28] MEDS ORDERED: LABETALOL 20 MG/4 ML SYRINGE IV ONE ×2 (15:37→15:49)
[2020-12-28] MEDS ORDERED: HYDROmorphone 2 MG/1 ML VIAL IV PRN (16:53)
[2020-12-28] MEDS ORDERED: [UNRECOGNIZED DRUG - OTHER] PO SCH (16:53)
[2020-12-28] MEDS ORDERED: CETIRIZINE 10 MG TABLET PO PRN (16:53)
[2020-12-28] MEDS: LACTATED RINGERS 1,000 ML IV SCH (17:31)
[2020-12-28] MEDS: KETOROLAC 30 MG/1 ML VIAL IV SCH ×3 (17:31→21:56)
[2020-12-28] MEDS ORDERED: NALOXONE 0.4 MG/ML VIAL IV PRN (17:31)
[2020-12-28 17:46] LABS: Calcium 8.7 MG/DL (8.5-10.1); Osmolality,Calculated 272.1 MOS/KG (273-304); Potassium 4.3 MMOL/L (3.5-5.1)
[2020-12-28 17:48] LABS: Basophils % 0.1 % (0.0-0.8); Hemoglobin 11.6 GM/DL (12.0-16.0); Immature Granulocytes % 0.7 %; Immature Granulocytes Absolute 0.17 #; Lymphocytes # 0.7 10*3/uL (1.4-4.0); Lymphocytes % 2.9 % (21.3-54.2); Mean Corpuscular HGB Conc 28.3 GM/DL (32-36); Mean Corpuscular Volume 79.3 FL (87-102); Mean Platelet Volume 10.6 FL (9.6-12.0); Monocytes % 2.1 % (1.7-12.7); Neutrophils % 94.2 % (38.7-73.9); Platelet Count 372 T/CUMM (130-400); Red Blood Count 5.17 MC/CUMM (3.8-5.5); Red Cell Distribution Width 17.2 % (9.3-17.3); White Blood Count 24.2 T/CUMM (4-12)
[2020-12-28] MEDS: HYDROmorphone PCA 30 MG/30 ML SYRINGE IV SCH (18:15)
[2020-12-28 19:32] LABS: Band Neutrophils 1 % (0-10); Lymphocytes 3 % (20-55); Platelet Estimate Normal; Segmented Neutrophils 96 % (50-85); Total Cells Counted 100
[2020-12-28 19:33] LABS: Polychromasia Few
[2020-12-28] MEDS: ALVIMOPAN 12 MG CAPSULE PO SCH (20:28)
[2020-12-28] MEDS: PANTOPRAZOLE 40 MG TABLET PO SCH (20:28)
[2020-12-29] MEDS: LACTATED RINGERS 1,000 ML IV SCH (02:37)
[2020-12-29] MEDS: KETOROLAC 30 MG/1 ML VIAL IV SCH ×4 (05:17→22:12)
[2020-12-29 06:07] LABS: Basophils % 0.2 % (0.0-0.8); Hematocrit 33.9 VOL% (35.7-47.0); Hemoglobin 10.1 GM/DL (12.0-16.0); Immature Granulocytes % 0.4 %; Immature Granulocytes Absolute 0.07 #; Lymphocytes # 2.3 10*3/uL (1.4-4.0); Lymphocytes % 13.3 % (21.3-54.2); Mean Corpuscular HGB Conc 29.8 GM/DL (32-36); Mean Corpuscular Volume 76.4 FL (87-102); Mean Platelet Volume 9.9 FL (9.6-12.0); Monocytes % 8.3 % (1.7-12.7); Neutrophils % 77.8 % (38.7-73.9); Platelet Count 322 T/CUMM (130-400); Red Blood Count 4.44 MC/CUMM (3.8-5.5); White Blood Count 17.5 T/CUMM (4-12)
[2020-12-29] MEDS ORDERED: LACTATED RINGERS 1,000 ML IV SCH (06:25)
[2020-12-29 06:39] LABS: Calcium 8.4 MG/DL (8.5-10.1); Potassium 4.2 MMOL/L (3.5-5.1)
[2020-12-29] MEDS: ENOXAPARIN 40 MG/0.4 ML SYRINGE SUBCUT SCH (08:56)
[2020-12-29] MEDS: ZINC GLUCONATE 50 MG TABLET PO SCH (08:56)
[2020-12-29] MEDS: ALVIMOPAN 12 MG CAPSULE PO SCH ×2 (08:57→21:00)
[2020-12-29] MEDS: MESALAMINE 0.375 GM PO SCH (08:57)
[2020-12-29] MEDS: ASCORBIC ACID 500 MG TABLET PO SCH (08:57)
[2020-12-29] MEDS: CHOLECALCIFEROL 5,000 UNIT TABLET PO SCH (08:57)
[2020-12-29] MEDS: ONDANSETRON 4 MG/2 ML VIAL IV PRN (10:37)
[2020-12-29] MEDS: HYDROmorphone PCA 30 MG/30 ML SYRINGE IV SCH (17:33)
[2020-12-29] MEDS: PANTOPRAZOLE 40 MG TABLET PO SCH (21:00)
[2020-12-30] MEDS: KETOROLAC 30 MG/1 ML VIAL IV SCH ×3 (04:11→18:44)
[2020-12-30] MEDS ORDERED: LIDOCAINE 2% TOP JELLY 20 ML VIAL INTRAURETH ONE (07:02)
[2020-12-30] MEDS: ZINC GLUCONATE 50 MG TABLET PO SCH (09:49)
[2020-12-30] MEDS: ALVIMOPAN 12 MG CAPSULE PO SCH ×2 (09:49→21:13)
[2020-12-30] MEDS: ENOXAPARIN 40 MG/0.4 ML SYRINGE SUBCUT SCH (09:49)
[2020-12-30] MEDS: CHOLECALCIFEROL 5,000 UNIT TABLET PO SCH (10:04)
[2020-12-30] MEDS: ASCORBIC ACID 500 MG TABLET PO SCH (10:04)
[2020-12-30] MEDS: MESALAMINE 0.375 GM PO SCH (10:05)
[2020-12-30] MEDS ORDERED: HYDROmorphone 2 MG/1 ML VIAL IV PRN (10:21)
[2020-12-30] MEDS: ONDANSETRON 4 MG/2 ML VIAL IV PRN (14:24)
[2020-12-30] MEDS: PANTOPRAZOLE 40 MG TABLET PO SCH (21:13)
[2020-12-31] MEDS: KETOROLAC 30 MG/1 ML VIAL IV SCH ×3 (00:08→09:53)
[2020-12-31] MEDS: ALVIMOPAN 12 MG CAPSULE PO SCH (09:52)
[2020-12-31] MEDS: ASCORBIC ACID 500 MG TABLET PO SCH (09:52)
[2020-12-31] MEDS: ZINC GLUCONATE 50 MG TABLET PO SCH (09:52)
[2020-12-31] MEDS: CHOLECALCIFEROL 5,000 UNIT TABLET PO SCH (09:52)
[2020-12-31] MEDS: ENOXAPARIN 40 MG/0.4 ML SYRINGE SUBCUT SCH (09:53)
[2020-12-31] MEDS: MESALAMINE 0.375 GM PO SCH (10:47)
[2020-12-31 11:40] VITALS: BP 116/48
== END 2020-12-31 15:06 | disposition home or self-care (01) | DRG 333 ==
LOC: N.OR 05:58 → N.SDSINP 06:01 → N.3E 16:50
PROVIDERS: ADMIT Surgery; ATTEND Surgery